=== PATIENT | male | born 1950 | race Caucasian/White ===

== ENCOUNTER → 2016-07-12 08:04 | Outpatient (CLI) | payer MEDICARE ==
[2014-10-29 08:38] VITALS: BMI 24.4
[~2016-07-12 08:04] MED LIST: FLOVENT DI50 MCG/DIS INH; FOLIC ACID1 MG PO; GLUCOPHAGE500 MG PO; PREDNISONE2.5 MG PO; SINGULAIR10 MG PO; TREXALL10 MG PO
[2016-07-12 08:35] LABS: BASOPHILS 0.6 % (0-2); EOSINOPHILS 3.9 % (0-7); HEMOGLOBIN 14.6 g/dL (13.5-17.5); IMMATURE GRANULOCYTES 0.2 % (0-5); LYMPHOCYTES 28.8 % (15-50); MCH 32.9 pg (26.0-34.0); MCHC 33.2 g/dL (31.0-37.0); MCV 99.1 fL (80.0-100.0); MEAN PLATELET VOLUME 10.6 fL (7.4-10.4); MONOCYTES 9.8 % (2-11); NEUTROPHILS 56.7 % (40-80); PLATELET COUNT 175 10x3/uL (130-400); RBC 4.44 10x6/uL (4.20-6.10); RDW 13.1 % (11.5-14.5); WBC 5.2 10x3/uL (4.8-10.8)
[2016-07-12 08:58] LABS: ALBUMIN 3.8 g/dL (3.4-5.0); ALT (SGPT) 31 U/L (10-68); CREATININE - SERUM 1.1 mg/dL (0.6-1.3); UREA NITROGEN 29 mg/dL (7-18)
[2016-07-12 09:03] LABS: C-REACTIVE PROTEIN < 0.2 mg/dL (0.0-0.9)
[2016-07-12 09:40] LABS: ERYTHROCYTE SEDIMENTATION RATE 2 mm/hr (0-20)
== END | disposition home or self-care (01) ==
LOC: D.LAB 08:04
PROVIDERS: Internal Medicine Rheumatology
DX: M06.09 Rheumatoid arthritis without rheumatoid factor, multiple sites (principal)

== ENCOUNTER → 2016-08-31 09:11 | Outpatient (CLI) | payer MEDICARE ==
[2014-10-29 08:38] VITALS: BMI 24.4
[2016-08-31 09:54] LABS: BASOPHILS 0.9 % (0-2); EOSINOPHILS 4.8 % (0-7); HEMATOCRIT 43.2 % (42.0-54.0); HEMOGLOBIN 14.6 g/dL (13.5-17.5); IMMATURE GRANULOCYTES 0.2 % (0-5); MCH 33.3 pg (26.0-34.0); MCHC 33.8 g/dL (31.0-37.0); MCV 98.6 fL (80.0-100.0); MEAN PLATELET VOLUME 10.5 fL (7.4-10.4); MONOCYTES 9.5 % (2-11); NEUTROPHILS 58.6 % (40-80); PLATELET COUNT 164 10x3/uL (130-400); RBC 4.38 10x6/uL (4.20-6.10); RDW 13.3 % (11.5-14.5); WBC 4.5 10x3/uL (4.8-10.8)
[2016-08-31 10:10] LABS: ALBUMIN 3.6 g/dL (3.4-5.0); CREATININE - SERUM 1.1 mg/dL (0.6-1.3)
[2016-08-31 11:30] LABS: ERYTHROCYTE SEDIMENTATION RATE 4 mm/hr (0-20)
== END | disposition home or self-care (01) ==
LOC: D.LAB 09:11
PROVIDERS: Internal Medicine Rheumatology
DX: M06.09 Rheumatoid arthritis without rheumatoid factor, multiple sites (principal)

== ENCOUNTER → 2016-11-02 09:09 | Outpatient (CLI) | payer MEDICARE ==
[2014-10-29 08:38] VITALS: BMI 24.4
[2016-11-02 09:42] LABS: BASOPHILS 0.6 % (0-2); EOSINOPHILS 3.4 % (0-7); HEMATOCRIT 42.8 % (42.0-54.0); HEMOGLOBIN 14.4 g/dL (13.5-17.5); IMMATURE GRANULOCYTES 0.2 % (0-5); LYMPHOCYTES 28.1 % (15-50); MCH 32.9 pg (26.0-34.0); MCHC 33.6 g/dL (31.0-37.0); MCV 97.7 fL (80.0-100.0); MEAN PLATELET VOLUME 10.4 fL (7.4-10.4); MONOCYTES 10.1 % (2-11); NEUTROPHILS 57.6 % (40-80); PLATELET COUNT 167 10x3/uL (130-400); RBC 4.38 10x6/uL (4.20-6.10); WBC 5.2 10x3/uL (4.8-10.8)
[2016-11-02 09:50] LABS: ALBUMIN 3.6 g/dL (3.4-5.0); ALT (SGPT) 26 U/L (10-68); CREATININE - SERUM 1.1 mg/dL (0.6-1.3); UREA NITROGEN 28 mg/dL (7-18)
[2016-11-02 09:52] LABS: C-REACTIVE PROTEIN < 0.2 mg/dL (0.0-0.9)
[2016-11-02 11:44] LABS: ERYTHROCYTE SEDIMENTATION RATE 2 mm/hr (0-20)
== END | disposition home or self-care (01) ==
LOC: D.LAB 09:09
PROVIDERS: Internal Medicine Rheumatology
DX: M06.09 Rheumatoid arthritis without rheumatoid factor, multiple sites (principal)

== ENCOUNTER → 2016-12-28 10:42 | Outpatient (CLI) | payer MEDICARE ==
[2014-10-29 08:38] VITALS: BMI 24.4
[2016-12-28 11:56] LABS: BASOPHILS 0.6 % (0-2); EOSINOPHILS 3.6 % (0-7); HEMATOCRIT 44.7 % (42.0-54.0); HEMOGLOBIN 15.3 g/dL (13.5-17.5); LYMPHOCYTES 32.3 % (15-50); MCH 33.1 pg (26.0-34.0); MCHC 34.2 g/dL (31.0-37.0); MCV 96.8 fL (80.0-100.0); MEAN PLATELET VOLUME 10.7 fL (7.4-10.4); MONOCYTES 7.8 % (2-11); NEUTROPHILS 55.7 % (40-80); PLATELET COUNT 159 10x3/uL (130-400); RBC 4.62 10x6/uL (4.20-6.10); RDW 12.9 % (11.5-14.5); WBC 5.2 10x3/uL (4.8-10.8)
[2016-12-28 12:22] LABS: ALBUMIN 3.7 g/dL (3.4-5.0); ALT (SGPT) 27 U/L (10-68); CREATININE - SERUM 0.9 mg/dL (0.6-1.3); UREA NITROGEN 24 mg/dL (7-18)
[2016-12-28 12:27] LABS: C-REACTIVE PROTEIN < 0.2 mg/dL (0.0-0.9)
[2016-12-28 14:00] LABS: ERYTHROCYTE SEDIMENTATION RATE 1 mm/hr (0-20)
== END | disposition home or self-care (01) ==
LOC: D.LAB 10:42
PROVIDERS: Internal Medicine Rheumatology
DX: M06.09 Rheumatoid arthritis without rheumatoid factor, multiple sites (principal)

== ENCOUNTER → 2017-03-01 09:18 | Outpatient (CLI) | payer MEDICARE ==
[2014-10-29 08:38] VITALS: BMI 24.4
[2017-03-01 09:45] LABS: BASOPHILS 0.6 % (0-2); HEMATOCRIT 44.6 % (42.0-54.0); HEMOGLOBIN 15.5 g/dL (13.5-17.5); IMMATURE GRANULOCYTES 0.2 % (0-5); LYMPHOCYTES 25.2 % (15-50); MCH 33.3 pg (26.0-34.0); MCHC 34.8 g/dL (31.0-37.0); MCV 95.7 fL (80.0-100.0); MEAN PLATELET VOLUME 10.1 fL (7.4-10.4); PLATELET COUNT 179 10x3/uL (130-400); RBC 4.66 10x6/uL (4.20-6.10); RDW 13.2 % (11.5-14.5); WBC 5.2 10x3/uL (4.8-10.8)
[2017-03-01 10:10] LABS: ALBUMIN 3.7 g/dL (3.4-5.0); C-REACTIVE PROTEIN 0.2 mg/dL (0.0-0.9); CALCIUM 9.3 mg/dL (8.5-10.1); CREATININE - SERUM 0.9 mg/dL (0.6-1.3); MAGNESIUM - SERUM 1.9 mg/dL (1.8-2.4); PHOSPHOROUS 3.6 mg/dL (2.5-4.9)
[2017-03-01 11:23] LABS: ERYTHROCYTE SEDIMENTATION RATE 1 mm/hr (0-20)
== END | disposition home or self-care (01) ==
LOC: D.LAB 09:18
PROVIDERS: Internal Medicine Rheumatology
DX: M06.09 Rheumatoid arthritis without rheumatoid factor, multiple sites (principal)

== ENCOUNTER → 2019-03-20 08:33 | Outpatient (CLI) | payer MEDICARE, OTHER ==
[2014-10-29 08:38] VITALS: BMI 24.4
--- NOTE | 2019-03-24 12:18 | EC ---
PATIENT:WILFRED PHELAN DATE OF SERVICE: 03/20/19 SEX: M MEDICAL RECORD: [id number] DATE OF : 50 LOCATION:D[facility] AGE OF PATIENT: 69 ADMISSION DATE: 03/20/19 REFERRING PHYSICIAN: INTERPRETING PHYSICIAN: HARISH GUERRA MD ECHOCARDIOGRAM REPORT ECHO CHARGES 4 ECHO COMPLETE Date: 03/20/19 CLINICAL DIAGNOSIS: H/O HTN/CAD ECHOCARDIOGRAPHIC MEASUREMENTS (adult normal given) AC root (d.<3.7cm) 2.9 cm LV Septum d (<1.2 cm> 1.0 cm Valve Excursion 1.8 cm LV Septum (systole) 1.6 cm Left Atria (s.<4.0cm> 4.6 cm LVPW d(<1.2cm) 1.0 cm RV (d.<2.3cm) 2.9 cm LVPW (sytole) 2.0 cm LV diastole(<5.6CM) 4.9 cm MV E-F(>70mm/sec) cm LV systole 2.4 cm LVOT Diameter 1.8 cm MV exc.(>10mm) cm Est.ejection fraction (50-75%) % DOPPLER: LVIT cm/sec A 57.0 cm/sec E 69.0 cm/sec LA cm/sec RVSP 22.0 mmHg LVOT 105 cm/sec AOP1/2T m/s Asc. 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 Nicholas TAPE# PACS Pericardial Effusion N DATE OF SERVICE: Adequate 2D, color flow imaging, spectral Doppler, and M-mode. No LVH. LV internal dimensions are normal. Wall motion is normal. EF is greater than or equal to 55%. Aortic valve is tricuspid. No evidence of stenosis by Doppler interrogation. Left atrium is 4.6 cm. Mitral valve shows no prolapse. Trace MR. Right-sided chambers grossly normal. Trace TR. TRANSINT:[id number] Voice Confirmation ID: [id number] DOCUMENT ID: [id number] ECHOCARDIOGRAM REPORT [id number] WILFRED PHELAN GREGORY A MD at 1218 CC: [id number] DICTATION DATE: 03/21/191412 SOLUTION DIRECTOR: 03/21/19 2219 DEP CLI 03/20/19 [place] [id number] [place] [id number]
== END | disposition home or self-care (01) ==
LOC: D.HCCECHO 08:33
PROVIDERS: ATTEND Internal Medicine Interventional Cardiology
DX: I25.10 Atherosclerotic heart disease of native coronary artery without angina pectoris (principal)